=== PATIENT | female | born 1945 | race Caucasian/White ===

== ENCOUNTER → 2017-01-04 | Outpatient (REF) | payer MEDICARE, OTHER ==
[~2017-01-04] MED LIST: ASTE0.15; BIOT50004 PO; CALC500T49 PO; D400400C PO; IBUP200T45 PO; LEVO150T42 PO; MOME50SP; MULTCAP PO; MYRB25TA PO; NEXI40CA PO; REST0.05 OU; VITA80005 PO
== END ==
LOC: M LAB REF 16:59
PROVIDERS: ATTEND Internal Medicine
DX: Z01.89 Encounter for other specified special examinations (principal)